=== PATIENT | female | born 1975 | race Caucasian/White ===

== ENCOUNTER 2016-12-07 13:28 | Emergency (ER) | payer MEDICAID ==
[~2016-12-07] VITALS: Ht 157.5 cm; Wt 79.0 kg
[~2016-12-07 13:28] MED LIST: GLYB2.5T3 PO; SE-NTAB3 PO
[2016-12-07 13:29] VITALS: BP 182/88; PULSE 90; RESP 18; TEMP 98.2; O2SAT 97
--- NOTE | 2016-12-07 13:33 | PD ---
Physical Exam Date Seen by Provider: Dec 07, 2016 Time Seen by Provider: 13:32 Narrative 41-year-old female presents to emergency Department with complaints of right knee pain 1 month. She denies any injury. She states that she's been having pain and swelling. No numbness, tingling or weakness. Pain is moderate. Vital signs reviewed. Pt waiting for bed placement. Data Data Last Documented VS Vital Signs Date Time Temp Pulse Resp B/P (MAP) Pulse Ox O2 Delivery O2 Flow Rate FiO2 12/07/16 13:29 98.2 90 18 182/88 (119) 97 Room Air [facility] Medical Record Reviewed: No Supervised Visit with JO: Denny Wen Dec 07, 2016 13:33
--- NOTE | 2016-12-07 14:14 | PD ---
HPI Chief Complaint: Pain: Acute or Chronic Time Seen by Provider: 14:00 Travel History International Travel<30 days: No Contact w/Intl Traveler<30days: No Traveled to known affect area: No History of Present Illness HPI Patient is a 41-year-old female who presents to emergency room with complaints of right knee pain. 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 Denies any trauma to her knee. Denies fever/chills. No other complaints. PFSH Past Medical History Medical History: Denies Significant Hx ?: Unknown Past Surgical History Surgical History: No Previous Surgery Social History Alcohol Use: No Tobacco Use: No Substance Use: No Allergies-Medications (Allergen,Severity, Reaction): Coded Allergies: No Known Allergies (Unverified Adverse Reaction, Unknown, 12/07/16) Reported Meds & Prescriptions Reported Meds & Active Scripts Active No Active Prescriptions or Reported Medications Review of Systems General / Constitutional: No: Fever Eyes: No: Visual changes HENT: No: Headaches Cardiovascular: No: Chest Pain or Discomfort Respiratory: No: Shortness of Breath Gastrointestinal: No: Abdominal Pain Genitourinary: No: Dysuria Musculoskeletal: Positive: Pain (right knee), No: Limited ROM Skin: No Rash Neurologic: No: Weakness Psychiatric: No: Depression Endocrine: No: Polydipsia Hematologic/Lymphatic: No: Easy Bruising Physical Exam Narrative GENERAL: Well-nourished, well-developed patient. SKIN: Focused skin assessment warm/dry. HEAD: Normocephalic. EYES: No scleral icterus. No injection or drainage. NECK: Supple, trachea midline. No JVD or lymphadenopathy. CARDIOVASCULAR: Regular rate and rhythm without murmurs, gallops, or rubs. RESPIRATORY: Breath sounds equal bilaterally. No accessory muscle use. GASTROINTESTINAL: Abdomen soft, non-tender, nondistended. MUSCULOSKELETAL: No cyanosis. Patient with mild swelling to right knee, patient with normal ROM to knee, patient ambulating in ER with normal gait. No redness or erythema to knee, no signs of infection BACK: Nontender without obvious deformity. No CVA tenderness. Data Data Last Documented VS Vital Signs Date Time Temp Pulse Resp B/P (MAP) Pulse Ox O2 Delivery O2 Flow Rate FiO2 10/31/17 13:29 98.2 90 18 182/88 (119) 97 Room Air Orders Orders Knee, Complete (4vws) (12/07/16 ) Ed Urine Pregnancytest Poc (12/07/16 14:00) Ice/Cold Pack (12/07/16 14:00) Ibuprofen (Motrin) (12/07/16 14:15) MDM Medical Decision Making Medical Screen Exam Complete: Yes Emergency Medical Condition: Yes Medical Record Reviewed: Yes Interpretation(s) Vital Signs Date Time Temp Pulse Resp B/P (MAP) Pulse Ox O2 Delivery O2 Flow Rate FiO2 12/07/16 13:29 98.2 90 18 182/88 (119) 97 Room Air Differential Diagnosis Knee strain, meniscal injury Narrative Course An x-ray of the right knee was ordered. Motrin was administered, ice pack placed to right knee. Patient ambulatory in the emergency room, patient with no acute distress at this time. Last Impressions Knee X-Ray 12/07/16 0000 Signed Impressions: Service Date/Time: Wednesday, December 07, 2016 14:23 - CONCLUSION: There is fullness in the suprapatella bursa region consistent with a joint effusion. Costa Ocasio MD X-ray of the knee shows bursitis. A copy of patient's x-ray report was given to her, she will follow up with orthopedic surgery. I encouraged rest, ice and NSAIDs. She will return to the emergency room as needed. Diagnosis Primary Impression: Bursitis of right knee Qualified Codes: M70.51 - Other bursitis of knee, right knee Referrals: Frank Guerra Jr., MD Patient Instructions: General Instructions Additional Instructions: Please provide patient with a copy of their lab work and studies at discharge* * Please follow up with your primary care doctor in 2-3 days Return to the ER if symptoms worsen or progress Return to the ER as needed Please follow up with orthopedic surgery Rest/ice and elevate your right lower extremity Med/Other Pt SpecificInfo: Prescription(s) given Scripts Naproxen (Naproxen) 500 Mg Tab 500 MG PO BID, #60 TAB 0 Refills Prov: Naya Arrington DO 12/07/16 Disposition: 01 DISCHARGE HOME Condition: Stable Naya Arrington DO Dec 07, 2016 14:14
[2016-12-07] MEDS ORDERED: IBUPROFEN 600 MG TAB PO ONE (14:15)
--- NOTE | 2016-12-07 15:04 | RADRPT ---
EXAM DATE/TIME: 12/07/2016 14:23 [facility] COMPARISON: No previous studies available for comparison. INDICATIONS : Pain and swelling right knee, hears and feels clicking in her knee MEDICAL HISTORY : None. SURGICAL HISTORY : None. ENCOUNTER: Initial ACUITY: 2 months PAIN SCORE: Non-responsive. LOCATION: Right knee FINDINGS: Four view examination of the right knee demonstrates no evidence of fracture or dislocation. Bony mi neralization is normal. The articular surfaces are intact. There is fullness in the suprapatella bur sa region consistent with a joint effusion. CONCLUSION: There is fullness in the suprapatella bursa region consistent with a joint effusion. Costa Ocasio MD on December 07, 2016 at 15:02 Board Certified Radiologist. This report was verified electronically.
[2016-12-07] MEDS ORDERED: NAPR500T2 PO (15:23)
== END 2016-12-07 16:33 | disposition home or self-care (01) ==
LOC: NEPD 13:28
DX: M70.51 Other bursitis of knee, right knee (principal)
CPT/HCPCS: 73564; 84703; 99283

== ENCOUNTER 2016-12-11 16:43 | Emergency (ER) | payer MEDICAID ==
[~2016-12-11] VITALS: Ht 157.5 cm; Wt 81.0 kg
[~2016-12-11 16:43] MED LIST changes: -GLYB2.5T3 PO; +NAPR500T2 PO; -SE-NTAB3 PO
[2016-12-11 16:44] VITALS: BP 140/85; PULSE 90; RESP 12; TEMP 98.4; O2SAT 99
--- NOTE | 2016-12-11 17:57 | PD ---
HPI Chief Complaint: Edema Time Seen by Provider: 17:54 Travel History International Travel<30 days: No Contact w/Intl Traveler<30days: No Traveled to known affect area: No History of Present Illness HPI 41-year-old female presents to the emergency department complaint of continued right knee swelling. She was seen on December 07 and was told she had swelling inside of her knee. She's been taking naproxen with minimal relief of the swelling. She denies knee pain. Denies paresthesias, loss of sensation, decreased range of motion, decreased strength to the affected extremity. Denies difficulty walking. Denies fever, vomiting. Symptoms are mild in severity. No known allergies. Does not have established primary care provider. Has not followed up since seen here December 07. Has no other medical complaints. No other modifying factors or associated signs and symptoms. History Past Medical Histgory LMP: 11/21/16 Social History Alcohol Use: No Tobacco Use: No Allergies-Medications (Allergen,Severity, Reaction): Coded Allergies: No Known Allergies (Unverified , 12/11/16) Reported Meds & Prescriptions Reported Meds & Active Scripts Active Naproxen 500 Mg Tab 500 Mg PO BID Review of Systems Except as stated in HPI: all other systems reviewed are Neg Physical Exam Narrative GENERAL: Well-nourished, well-developed female patient, in no acute distress; afebrile, nontoxic-appearing SKIN: Warm and dry. HEAD: Atraumatic. Normocephalic. EYES: Pupils equal and round. No scleral icterus. No injection or drainage. ENT: Mucosa pink and moist. Airway patent. NECK: Trachea midline. CARDIOVASCULAR: Regular rate. RESPIRATORY: No accessory muscle use. GASTROINTESTINAL: Obese. MUSCULOSKELETAL: Right knee mildly edematous, nonerythematous, and without ecchymosis; full range of motion and flexion to 90; no point tenderness on palpation; joint stable with negative drawer test; no obvious deformity. Right Lower extremity is supple and non-tense with 2+ pedal pulse and sensory intact and without erythema or edema. Ambulatory in room with normal gait. NEUROLOGICAL: Awake and alert. Oriented 3. No obvious cranial nerve deficits. Motor grossly within normal limits. Normal speech. PSYCHIATRIC: Appropriate mood and affect; insight and judgment normal. Data Data Last Documented VS Vital Signs Date Time Temp Pulse Resp B/P (MAP) Pulse Ox O2 Delivery O2 Flow Rate FiO2 12/11/16 16:44 98.4 90 12 140/85 (103) 99 MDM Medical Screen Exam Complete: Yes Emergency Medical Condition: No Differential Diagnosis Knee Bursitis Narrative Course 41-year-old female with right knee bursitis that was diagnosed on December 07. Presents because she is concerned because she's been taking naproxen and her knee still has some swelling. The knee is mildly edematous and there are no signs of septic joint. He is afebrile and nontoxic. Denies fever, vomiting. She denies any pain. Patient was provided information to the [facility] for follow-up. Vital signs are stable and the patient is stable for outpatient follow-up and treatment. The patient has no urgent or emergent medical complaints. There is no emergent or urgent medical need at this time. I instructed the patient to follow up with their primary care provider. A medical screening exam was performed: At the time of evaluation the presenting medical condition was determined not to be of an emergent nature. The patient was given the option of receiving additional care, but declined. Patient was given options for additional community resources from which to obtain care. The Patient Has Been advised to seek medical attention for their presenting complaint. The patient has been advised to return to the ER at any time if an emergent condition develops. Primary Impression: Encounter for medical screening examination Condition: Stable Serena Macias Dec 11, 2016 17:57
== END 2016-12-11 18:02 | disposition left against medical advice (07) ==
LOC: NEPK 16:43
DX: M25.461 Effusion, right knee (principal)
CPT/HCPCS: 99281

== ENCOUNTER 2017-03-21 17:59 | Emergency (ER) | payer SELFPAY ==
[2017-03-21 18:00] VITALS: BP 163/92; PULSE 112; RESP 12; TEMP 98.2; O2SAT 100
--- NOTE | 2017-03-21 19:34 | RADRPT ---
EXAM DATE/TIME: 03/21/2017 18:56 [facility] COMPARISON: No previous studies available for comparison. INDICATIONS : Pressure in head, lethargy. RADIATION DOSE: 56.35 CTDIvol (mGy) MEDICAL HISTORY : None SURGICAL HISTORY : None. ENCOUNTER: Initial ACUITY: 1 day PAIN SCALE: 2/10 LOCATION: Bilateral cranial TECHNIQUE: Multiple contiguous axial images were obtained of the head. Using automated exposure control and adj ustment of the mA and/or kV according to patient size, radiation dose was kept as low as reasonably a chievable to obtain optimal diagnostic quality images. DICOM format image data is available electro nically for review and comparison. FINDINGS: CEREBRUM: The ventricles are normal for age. No evidence of midline shift, mass lesion, hemorrhage or acute in farction. No extra-axial fluid collections are seen. POSTERIOR FOSSA: The cerebellum and brainstem are intact. The 4th ventricle is midline. The cerebellopontine angle i s unremarkable. EXTRACRANIAL: The visualized portion of the orbits is intact. SKULL: The calvaria is intact. No evidence of skull fracture. CONCLUSION: 1. No acute intracranial abnormalities. Cavum septum pellucidum. Denny Mari MD on March 21, 2017 at 19:30 Board Certified Radiologist. This report was verified electronically.
[2017-03-21] MEDS ORDERED: ACETAMINOPHEN 325 MG TAB PO ONE (20:00)
--- NOTE | 2017-03-21 20:01 | PD ---
HPI Chief Complaint: Hypertension Time Seen by Provider: 19:57 Travel History International Travel<30 days: No Contact w/Intl Traveler<30days: No Traveled to known affect area: No History of Present Illness HPI 41-year-old female presents for evaluation of hypertension. She went to the pharmacy today and was told that her blood pressure was in the 160 systolic and they referred her here. She denies any history of hypertension. She does report that she has had a dull mild frontal headache for the past 4 days. Denies any blurred vision, chest pain or shortness of breath, recent illness, recent travel. Last menstrual period was 10 days ago. She has no other complaints at this time. [facility], [facility] Past Medical History Medical History: Denies Significant Hx ?: Not Past Surgical History Surgical History: No Previous Surgery Social History Alcohol Use: No Tobacco Use: No Substance Use: No Allergies-Medications (Allergen,Severity, Reaction): Coded Allergies: No Known Allergies (Unverified , 12/11/16) Reported Meds & Prescriptions Reported Meds & Active Scripts Active Naproxen 500 Mg Tab 500 Mg PO BID Review of Systems Except as stated in HPI: all other systems reviewed are Neg Physical Exam Narrative GENERAL: Well-developed well-nourished female in no acute distress SKIN: Warm and dry. HEAD: Atraumatic. Normocephalic. EYES: Pupils equal and round. No scleral icterus. No injection or drainage. ENT: No nasal bleeding or discharge. Mucous membranes pink and moist. NECK: Trachea midline. No JVD. CARDIOVASCULAR: Regular rate and rhythm. No murmur appreciated. RESPIRATORY: No accessory muscle use. Clear to auscultation. Breath sounds equal bilaterally. GASTROINTESTINAL: Abdomen soft, non-tender, nondistended. Hepatic and splenic margins not palpable. MUSCULOSKELETAL: No obvious deformities. No clubbing. No cyanosis. No edema. NEUROLOGICAL: Awake and alert. No obvious cranial nerve deficits. Motor grossly within normal limits. Normal speech. PSYCHIATRIC: Appropriate mood and affect; insight and judgment normal. Data Data Last Documented VS Vital Signs Date Time Temp Pulse Resp B/P (MAP) Pulse Ox O2 Delivery O2 Flow Rate FiO2 03/21/17 18:00 98.2 112 12 163/92 (115) [address] Brain W/O Iv Contrast(Rout) (03/21/17 ) Ed Urine Pregnancytest Poc (03/21/17 19:47) Acetaminophen (Tylenol) (03/21/17 20:00) MDM Medical Decision Making Medical Screen Exam Complete: Yes Emergency Medical Condition: Yes Medical Record Reviewed: Yes Differential Diagnosis Hypertension, hypertensive urgency, hypertensive emergency, intracranial hemorrhage Narrative Course CT imaging of the brain was obtained in triage and reveals no acute abnormalities. Urine test is negative. The patient has mildly elevated blood pressure as well as a mild frontal pressure type headache. She has no focal neurologic deficits on examination. I have recommended that she keep a journal of her blood pressure and a daily basis for the next 2 weeks and then to follow up with primary care physician to discuss the findings. She'll be given Tylenol for her headache. Diagnosis Primary Impression: Elevated blood pressure reading Additional Impression: Cephalgia Referrals: [facility] Additional Instructions: As discussed, monitor your blood pressure on a daily basis for the next 2 weeks , keep a journal of these readings, and follow up with a primary care physician. Return for any emergent medical conditions. Med/Other Pt SpecificInfo: No Change to Meds Disposition: 01 DISCHARGE HOME Condition: Stable Kang Guzman Mar 21, 2017 20:01
== END 2017-03-21 20:27 | disposition home or self-care (01) ==
LOC: NEPK 17:59
DX: R03.0 Elevated blood-pressure reading, without diagnosis of hypertension (principal); R51 Headache
CPT/HCPCS: 70450; 84703